=== PATIENT | male | born 1975 | race Caucasian/White ===

== ENCOUNTER 2020-07-05 07:03 | Outpatient (CLI) | payer OTHER ==
[2020-07-05 22:15] LABS: SARS-CoV-2 MS2 Positive; SARS-CoV-2 N Gene Negative; SARS-CoV-2 S Gene Negative; SARS-CoV-2 by NAA Not Detected (NotDetected); SARS-CoV-2 orf1ab Negative
--- NOTE | 2020-07-09 06:57 | EKG ---
Test Reason : Blood Pressure : / mmHG Vent. Rate : 055 BPM Atrial Rate : 055 BPM P-R Int : 140 ms QRS Dur : 104 ms QT Int : 414 ms P-R-T Axes : 030 014 -18 degrees QTc Int : 396 ms Sinus bradycardia with sinus arrhythmia Nonspecific T wave abnormality Abnormal ECG Confirmed by LIZZY BILLINGSLEY MD ([id number]) on 07/09/2020 6:56:55 AM Referred By: BABAK Confirmed By:LIZZY BILLINGSLEY MD
== END 2020-07-05 07:04 | disposition home or self-care (01) ==
LOC: LABBT 07:03
PROVIDERS: ATTEND Orthopaedic Surgery
DX: Z01.818 Encounter for other preprocedural examination (principal); Z01.812 Encounter for preprocedural laboratory examination; S29.011A Strain of muscle and tendon of front wall of thorax, initial encounter; Z20.828 Contact with and (suspected) exposure to other viral communicable diseases
CPT/HCPCS: 87635; 93005; 93010; U0003

== ENCOUNTER 2020-07-09 08:30 | Day surgery (SDC) | payer OTHER ==
[2020-07-08 12:50] VITALS: BMI 34.9
[2020-07-09] MEDS ORDERED: PHENYLEPHRINE-NS 100 MCG/ML 10 ML SYRINGE ONE (09:38)
[2020-07-09] MEDS ORDERED: Glycopyrrolate 0.2 MG/ML 5 ML SYRINGE ONE (09:38)
[2020-07-09] MEDS ORDERED: Ketorolac Tromethamine 30 MG/ML VIAL ONE (09:38)
[2020-07-09] MEDS ORDERED: Ondansetron PF 4 MG/2 ML Vial ONE (09:38)
[2020-07-09] MEDS ORDERED: PROPOFOL 200 MG/20 ML VIAL ONE (09:38)
[2020-07-09] MEDS ORDERED: Lidocaine 1% PF 5 ML VIAL ONE (09:38)
[2020-07-09] MEDS ORDERED: Rocuronium Bromide 10 MG/ML (10ML VIAL) ONE (09:38)
[2020-07-09] MEDS ORDERED: Bupivacaine 0.25% HCL 30 ML VIAL ONE (10:03)
[2020-07-09] MEDS ORDERED: Lidocaine 1% (PF) 30 ML VIAL ONE (10:03)
[2020-07-09] MEDS ORDERED: Bupivacaine PF 0.5% 30 ML VIAL ONE (10:03)
[2020-07-09] MEDS ORDERED: Lidocaine 1% w/Epinephrine 1:100K 20 ML VIAL ONE (10:04)
[2020-07-09] MEDS ORDERED: Fentanyl 100 MCG/2 ML VIAL ONE ×3 (10:05→12:09)
[2020-07-09] MEDS ORDERED: Midazolam HCl 2 mg/2 ml Vial ONE (10:06)
[2020-07-09] MEDS ORDERED: HYDROcodone/Acetaminophen 5/325 mg Tablet ONE (13:58)
[2020-07-09] MEDS ORDERED: Ondansetron ODT 4 MG TAB ONE (14:41)
--- NOTE | 2020-07-10 09:07 | OP ---
DATE OF PROCEDURE: 07/09/2020 PREOPERATIVE DIAGNOSIS: Right pectoralis major tendon tear. POSTOPERATIVE DIAGNOSES: Right pectoralis major sternal head, full-thickness myotendinous tear. PROCEDURE PERFORMED: Right pectoralis major tendon repair. INGOT PASSER: Geoff eYpez PA-C ANESTHESIOLOGIST: Mary Villatoro MD ANESTHESIA: The patient received a general endotracheal intubation with interscalene block, 20 mL 1% lidocaine with epi with 0.5% Marcaine plain 20 mL. ANTIBIOTICS: Ancef 2 g. TOURNIQUET TIME: None. IMPLANTS: #5 FiberWire. COMPLICATIONS: None. HISTORY OF PRESENT ILLNESS: Mr. Hobson is a 44-year-old male, status post bench press, sustaining an injury to his right pectoralis major tendon about over a month ago. MRI showed a myotendinous tear with retraction of the pec. I discussed with him the risks and benefits of right pectoralis tendon repair to include pain, scar, bleeding, infection, damage to vital structures, decreased range of motion and strength, need for further surgeries, continued pain despite surgical intervention, loss of life or limb. The patient's family understood the risks and benefits of the procedure, like to proceed. DESCRIPTION OF PROCEDURE: A time-out was performed designating the patient's right upper extremity as the operative site based on site, consents, and marking. After time-out, the patient's right upper extremity was prepped and draped in a sterile fashion. We made a deltopectoral incision down through skin just distal to the conjoined tendon. We dissected through the fat, came down and found the patient's cephalic vein and came down in the deltopectoral interval. His sternal head appeared intact throughout its course. We were able to find our interval and make a plane to expose near the deltoid insertion over the pectoralis is investing with the sternal and the clavicular head. We found only a small defect, which we had buttonholed and make a 5 mm at the inferior aspect of the clavicular head and the superior aspect of the sternal head to find the defect underneath. Given this and having difficulty with retracting the clavicular head up to find it deep, we moved medially and came on the medial aspect of the sternal head, came down and found the muscle belly and creating a second interval to work through. We found was just a remnant muscular head, which just remnant section of tendon, not a large section of tendon underneath. Given this, we did not feel the retraction would be sufficient to pass through the patient's drill holes in the humerus. Therefore, we ran two #5 Ethibond through the muscle belly and large up and down stitches with about 5 passes each to get control of the muscle remnant tendon. We then passed those stitches underneath the remnant sternal head, which helped this to pass it through and suture over the top to sew the tendon underneath and inferior to the undersurface of the sternal head. We cut those stitches. We closed our interval with 0 Vicryl to close the sternal and pectoral head together. We attempted to close the remnant sternal and pectoral head. We made a buttonhole, but the deep of the wound was too big and there was not enough tissue plane to close. Therefore, we washed and closed the deltopectoral interval with 0 Vicryl, closed the skin and subcu with 2-0, the skin was with rosalino. The patient will be in abduction pillow. Elbow, wrist, hand motion for 2 weeks. We will slowly stretch him out. The patient's outlook is guarded because of his myotendinous tear. I am hopeful that it will adhere down, give him better strength and give better insertion. [place] that taking down the remainder of the tendon would be counterproductive and I felt this was the best we could improve his outcome. My chiropractic assistant help with the position, incision, retraction of major structures, exposure, suturing as well as passing sutures for closure and closure interval, washing and closing the incision and repositioned on the bed. Job ID: [id number] [facility]
== END 2020-07-09 12:46 | disposition home or self-care (01) ==
LOC: SDC 08:30
PROVIDERS: ATTEND Orthopaedic Surgery
PROC: 0LM30ZZ Reattachment of Right Upper Arm Tendon, Open Approach (ICD-10-PCS; principal; 2020-07-09)
DX: S29.011A Strain of muscle and tendon of front wall of thorax, initial encounter (principal); X58.XXXA Exposure to other specified factors, initial encounter; Y93.B9 Activity, other involving muscle strengthening exercises
CPT/HCPCS: J0690; J1885; J2001; J2250; J2405; J2704; J3010; Q0162; S0020